=== PATIENT | male | born 1960 | race Caucasian/White ===

== ENCOUNTER 2017-05-16 18:05 | Emergency (ER) | payer OTHER ==
[~2017-05-16] VITALS: Ht 177.8 cm; Wt 90.7 kg
[2017-05-16] MEDS ORDERED: BACTRIM DS 8001 TA1 PO (19:37)
--- NOTE | 2017-05-16 19:40 | Emergency Room Report ---
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 N Clinical Suspician of Infection? N Mental Status: 1 - Regular (Normal Baseline) Sepsis Risk:Low Sepsis Risk Have you (or family members/close friends) recently traveled outside the [place]? Y If Yes, [facility] Have you had exposure to infectious disease within the past month? N TB? Other? Specify: Source patient, RN notes reviewed, family, RN/MD Exam Limitations no limitations Comment This is a 57-year-old patient presented emergency room with laceration to the dorsal LEFT hand, sustained 30 minutes prior to arrival, while at work, using a melanie. He shouldn't denies any neurological deficits in the LEFT hand, however he has weakness of the LEFT thumb. ALLERGIES Coded Allergies: Penicillins (05/16/17) History Medical History General CAD? No Angina: No HI: No Hypertension? No Hyperlipidemia? No CHF? No DVT? No PE? No COPD? No Asthma? No Anemia? No GERD? No Gastric ulcers? No GI Bleed? No Hernia? No Thyroid Problems? No Hypothyroidism? No CVA? No Seizures? No Diabetes? No Renal Insuffiency? No End Stage Renal Disease? No UTI? No Stones? No BPH? No GB Disease: No Nephritic Syndrome? No Asplenia? No Hepatitis? No Sickle Cell Disease? No Arthritis? No Migraines? No Cataracts? No Glaucoma? No MRSA? No HIV? No TB? No Anxiety? No Depression? No Cancer? No Site: N Immunization Hx DT/Tetanus Unknown Surgical Hx Previous Surgery?Y LYMPH NODE Appendectomy Social History Smoking Hx Smoker: Never Smoker Tobacco: No Type N/A Review of Systems All Other Systems Reviewed and Negative Skin lesions (left dorsal hand laceration) Physical Exam Vital Signs Vital Signs Date Time Temp Pulse Resp B/P Pulse O2 O2 Flow FiO2 Ox Delivery Rate 05/16 194 98.0 90 18 154/83 96 05/16 1810 98.0 90 18 154/83 96 General Appearance normal appearance, WD/WN, mild distress Respiratory Status Yes: trachea midline, chest symmetrical, non tender chest. No: respiratory distress. Lung Sounds bilateral: normal breath sounds, lungs clear. 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 Medical Decision Making LABS/Meds/Orders Pt receiving controlled substance in ED? No Comment 19:10 - laceration of the LEFT first thumb extensor ligament (abductor policis longs). Wound closed with loose stitches, tendon NOT repaired. Bulky dressing applied, in order to splint the finger. 19:15- case discussed with Jareth Dolan office intake #. Discussed with Dr Weinberg's nurse, myself patient's presentation and findings , inquired to the hand surgeons availability for tomorrow morning to see patients in the office at [address] Weinberg's nurse advised she will contact Dr. Weinberg, RIGHT away and get back within a few minutes to schedule prompt for timing for patient to be seen in the office. 19:22-Dr. Weinberg's nurse turned called to the emergency room, stating that Dr. Weinberg will be available at 8:30 AM on Sunday, 05/18 and patient is to show up NPO, with a tow driver. Results/Orders Current Medication Orders Sig/Jere Start time Last Medication Dose Route Stop Time Status Admin Trimethoprim/ 1 TABLET ONCE ONE 05/16 1945 DCDr Sulfamethoxazole PO 05/16 1946 Lidocaine HCl 0 .STK-MED ONE 05/16 1919 DC .ROUTE Diphtheria/Pertussis/ 0.5 ML ONCE ONE 05/16 1830 DC 05/16 Tetanus Vacc IM 05/16 Diphtheria/Pertussis/ 0 .STK-MED ONE 05/16 1810 DC Tetanus Vacc IM Procedures Laceration/Wound Repair Laceration/Wound Repair Risks/benefits discussed with pt/guardian? Yes Tetanus status not up to date Wound Location LEFT dorsal hand, proximal to LEFT first MCP Wound Length (cm) 2 Wound's Depth, Shape sucutaneous tissue, linear Wound Explored clean Risk of retained FB explained to pt/guardian? Yes Irrigated w/ Saline (ccs) 30 Wound Prep Betadine, Saline Anesthesia 1% Lidocaine, Digital block Volume Anesthetic (ccs) 20 Wound Debrided none Wound Repaired With sutures Suture Size/Type 4:0, Ethilon Total Number Sutures 4 Sterile Dressing Applied Yes Departure Departure Time of Disposition 1932 Disposition DC Home or Self Care(routine) Clinical Impression Primary Impression: Injury of tendon of left upper extremity Qualifiers: Encounter type: initial encounter Qualified Code: S46.902A - Unspecified injury of unspecified muscle, fascia and tendon at shoulder and upper arm level, left arm, initial encounter Condition STABLE Referrals QUITA WEINBERG: Tomorrow-Call Office Patient Instructions DI for Finger Extensor Tendon Injury Additional Instructions Please follow-up with Dr. Weinberg on Friday 05/18 at 8:30am at the [place] location, with a tow driver, and nothing to eat after midnight. You will have surgery that day. Discharge Counseling Counseled pt/family regarding diagnosis, medications/RX, home care, follow up needs Comment Please follow-up with Dr. Quita Weinberg on Friday 05/18 at 8:30am at the [place] location, with a tow driver, and nothing to eat after midnight. You will have surgery that day. Prescriptions Current Visit Scripts SULFAMETHOXAZOLE W/TRIMETHOPRI (Bactrim Ds Tab) 1 TABLET PO BID #20 TAB ED Critical Care Critical Care No at 0989
--- NOTE | 2017-05-16 19:40 | Emergency Room Report ---
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 N Clinical Suspician of Infection? N Mental Status: 1 - Regular (Normal Baseline) Sepsis Risk:Low Sepsis Risk Have you (or family members/close friends) recently traveled outside the [place]? Y If Yes[facility] Have you had exposure to infectious disease within the past month? N TB? Other? Specify: Source patient, RN notes reviewed, family, RN/MD Exam Limitations no limitations Comment This is a 57-year-old patient presented emergency room with laceration to the dorsal LEFT hand, sustained 30 minutes prior to arrival, while at work, using a melanie. He shouldn't denies any neurological deficits in the LEFT hand, however he has weakness of the LEFT thumb. ALLERGIES Coded Allergies: Penicillins (05/16/17) History Medical History General CAD? No Angina: No NM: No Hypertension? No Hyperlipidemia? No CHF? No DVT? No PE? No COPD? No Asthma? No Anemia? No GERD? No Gastric ulcers? No GI Bleed? No Hernia? No Thyroid Problems? No Hypothyroidism? No CVA? No Seizures? No Diabetes? No Renal Insuffiency? No End Stage Renal Disease? No UTI? No Stones? No BPH? No GB Disease: No Nephritic Syndrome? No Asplenia? No Hepatitis? No Sickle Cell Disease? No Arthritis? No Migraines? No Cataracts? No Glaucoma? No MRSA? No HIV? No TB? No Anxiety? No Depression? No Cancer? No Site: N Immunization Hx DT/Tetanus Unknown Surgical Hx Previous Surgery?Y LYMPH NODE Appendectomy Social History Smoking Hx Smoker: Never Smoker Tobacco: No Type N/A Review of Systems All Other Systems Reviewed and Negative Skin lesions (left dorsal hand laceration) Physical Exam Vital Signs Vital Signs Date Time Temp Pulse Resp B/P Pulse O2 O2 Flow FiO2 Ox Delivery Rate 05/16 194 98.0 90 18 154/83 96 05/16 1810 98.0 90 18 154/83 96 General Appearance normal appearance, WD/WN, mild distress Respiratory Status Yes: trachea midline, chest symmetrical, non tender chest. No: respiratory distress. Lung Sounds bilateral: normal breath sounds, lungs clear. 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 Medical Decision Making LABS/Meds/Orders Pt receiving controlled substance in ED? No Comment 19:10 - laceration of the LEFT first thumb extensor ligament (abductor policis longs). Wound closed with loose stitches, tendon NOT repaired. Bulky dressing applied, in order to splint the finger. 19:15- case discussed with Jareth Dolan office intake #. Discussed with Dr Weinberg's nurse, myself patient's presentation and findings , inquired to the hand surgeons availability for tomorrow morning to see patients in the office at [address] Weinberg's nurse advised she will contact Dr. Weinberg, RIGHT away and get back within a few minutes to schedule prompt for timing for patient to be seen in the office. 19:22-Dr. Weinberg's nurse turned called to the emergency room, stating that Dr. Weinberg will be available at 8:30 AM on Sunday, 05/18 and patient is to show up NPO, with a limb driver. Results/Orders Current Medication Orders Sig/Jere Start time Last Medication Dose Route Stop Time Status Admin Trimethoprim/ 1 TABLET ONCE ONE 05/16 1945 DCDr Sulfamethoxazole PO 05/16 1946 Lidocaine HCl 0 .STK-MED ONE 05/16 1919 DC .ROUTE Diphtheria/Pertussis/ 0.5 ML ONCE ONE 05/16 1830 DC 05/16 Tetanus Vacc IM 05/16 Diphtheria/Pertussis/ 0 .STK-MED ONE 05/16 1810 DC Tetanus Vacc IM Procedures Laceration/Wound Repair Laceration/Wound Repair Risks/benefits discussed with pt/guardian? Yes Tetanus status not up to date Wound Location LEFT dorsal hand, proximal to LEFT first MCP Wound Length (cm) 2 Wound's Depth, Shape sucutaneous tissue, linear Wound Explored clean Risk of retained FB explained to pt/guardian? Yes Irrigated w/ Saline (ccs) 30 Wound Prep Betadine, Saline Anesthesia 1% Lidocaine, Digital block Volume Anesthetic (ccs) 20 Wound Debrided none Wound Repaired With sutures Suture Size/Type 4:0, Ethilon Total Number Sutures 4 Sterile Dressing Applied Yes Departure Departure Time of Disposition 1932 Disposition DC Home or Self Care(routine) Clinical Impression Primary Impression: Injury of tendon of left upper extremity Qualifiers: Encounter type: initial encounter Qualified Code: S46.902A - Unspecified injury of unspecified muscle, fascia and tendon at shoulder and upper arm level, left arm, initial encounter Condition STABLE Referrals QUITA WEINBERG: Tomorrow-Call Office Patient Instructions DI for Finger Extensor Tendon Injury Additional Instructions Please follow-up with Dr. Weinberg on Friday 05/18 at 8:30am at the [place] location, with a limb driver, and nothing to eat after midnight. You will have surgery that day. Discharge Counseling Counseled pt/family regarding diagnosis, medications/RX, home care, follow up needs Comment Please follow-up with Dr. Quita Weinberg on Friday 05/18 at 8:30am at the [place] location, with a limb driver, and nothing to eat after midnight. You will have surgery that day. Prescriptions Current Visit Scripts SULFAMETHOXAZOLE W/TRIMETHOPRI (Bactrim Ds Tab) 1 TABLET PO BID #20 TAB ED Critical Care Critical Care No at 0915
[2017-05-16 19:43] VITALS: BP 154/83
== END 2017-05-16 19:43 | disposition home or self-care (01) ==
LOC: ER 18:05
PROC: 0HQGXZZ Repair Left Hand Skin, External Approach (ICD-10-PCS; principal; 2017-05-16)
DX: S66.222A Laceration of extensor muscle, fascia and tendon of left thumb at wrist and hand level, initial encounter (principal); S61.012A Laceration without foreign body of left thumb without damage to nail, initial encounter; Y99.0 Civilian activity done for income or pay

== ENCOUNTER 2017-09-09 10:45 | Emergency (ER) | payer OTHER ==
[~2017-09-09] VITALS: Ht 177.8 cm; Wt 87.5 kg
[~2017-09-09 10:45] MED LIST: BACTRIM DS 8001 TA1 PO
--- NOTE | 2017-09-09 11:39 | Urgent Treatment Center Report ---
History of Present Issue Date/Time Seen by Provider 09/09/17 1134 Visit Reason Pt arrived:Walked Presenting Problem:PT ADVISES THAT HE FOUND A TICK ON HIS RT SIDE AND NOW HAS A REDDENED AREA WITH STREAKING Location if Accident: Onset of symptoms date/time:/ or onset unknown for:MEDICAL HX UNKNOWN Have you (or family members/close friends) recently traveled outside the [place]? N If Yes, where/when: Have you had exposure to infectious disease within the past month? TB? Other? Specify: Patient state that he noticed spot on his right side last night and he "pinched " it and pulled off a small tick State that he placed the tick in a bag and began to watch the area State that this morning he noticed that it was red around the bite and that there was a few streaks so he decided to come in and get checked ALLERGIES Coded Allergies: Penicillins (05/16/17) Home Medications Active Scripts SULFAMETHOXAZOLE W/TRIMETHOPRI (Bactrim Ds Tab) 1 TABLET PO BID #20 TAB Prov: 05/16/17 History Medical History General CAD? No Angina: No ME: No Hypertension? No Hyperlipidemia? No CHF? No DVT? No PE? No COPD? No Asthma? No Anemia? No GERD? No Gastric ulcers? No GI Bleed? No Hernia? No Thyroid Problems? No Hypothyroidism? No CVA? No Seizures? No Diabetes? No Renal Insuffiency? No UTI? No Stones? No BPH? No GB Disease: No Nephritic Syndrome? No Asplenia? No Hepatitis? No Sickle Cell Disease? No Arthritis? No Migraines? No Cataracts? No Glaucoma? No MRSA? No HIV? No TB? No Anxiety? No Depression? No Cancer? No Site: N More? No Immunization HX DT/Tetanus Unknown Surgical Hx Previous Surgery?Y LYMPH NODE Appendectomy Social History Smoking Hx Smoker: Never Smoker Tobacco: No Alcohol Alcohol: No Review of Systems All Other Systems Reviewed and Negative Skin other Physical Exam Vital Signs Vital Signs Date Time Temp Pulse Resp B/P Pulse O2 O2 Flow FiO2 Ox Delivery Rate 09/09 1130 98.2 66 20 137/83 96 General Appearance normal appearance, WD/WN, no apparent distress Respiratory Status Yes: trachea midline, chest symmetrical, non tender chest. No: respiratory distress. Cardiovascular normal exam, regular rate/rhythm, no peripheral edema Neurologic alert, normal exam, oriented x 3 Skin Small red area noted around bite with small streak area marked and educated on what to watch for Medical Decision Making LABS/Meds/Orders Pt receiving controlled substance in ED? No Departure Departure Time of Disposition 1149 Disposition DC Home or Self Care(routine) Clinical Impression Primary Impression: Tick bite Qualifiers: Encounter type: initial encounter Qualified Code: W57.XXXA - Bitten or stung by nonvenomous insect and other nonvenomous arthropods, initial encounter Condition STABLE Patient Instructions How to Remove a Tick Additional Instructions Take antibiotic as prescribed Follow up with family doctor Watch area as advised when you was in the clinic today Over the counter TYlenol or Motrin for pain Discharge Counseling Counseled pt/family regarding diagnosis, medications/RX, home care, follow up needs Prescriptions Current Visit Scripts Doxycycline Hyclate (Vibramycin) 100 MG PO BID #28 CAP 100mg twice daily for 14 days at 1155
[2017-09-09] MEDS ORDERED: VIBRAMYCIN HYC100 MG PO (11:53)
[2017-09-09 11:57] VITALS: BP 137/83
== END 2017-09-09 11:57 | disposition home or self-care (01) ==
LOC: UTC 10:45
DX: S30.861A Insect bite (nonvenomous) of abdominal wall, initial encounter (principal)